=== PATIENT | female | born 1985 | race Caucasian/White ===

== ENCOUNTER → 2018-10-05 | Outpatient (CLI) | payer BC | LOC: FIMAGING 09:05 | PROVIDERS: ATTEND Obstetrics & Gynecology | DX: Z36.0 Encounter for antenatal screening for chromosomal anomalies (principal); O30.041 Twin pregnancy, dichorionic/diamniotic, first trimester; Z3A.12 12 weeks gestation of pregnancy ==

== ENCOUNTER → 2018-12-04 | Outpatient (CLI) | payer BC | LOC: FIMAGING 10:12 | PROVIDERS: ATTEND Obstetrics & Gynecology | DX: O09.92 Supervision of high risk pregnancy, unspecified, second trimester (principal); O30.042 Twin pregnancy, dichorionic/diamniotic, second trimester; Z3A.20 20 weeks gestation of pregnancy ==

== ENCOUNTER → 2019-01-04 | Outpatient (CLI) | payer BC | LOC: FIMAGING 12:31 | PROVIDERS: ATTEND Obstetrics & Gynecology | DX: O30.042 Twin pregnancy, dichorionic/diamniotic, second trimester (principal); Z3A.25 25 weeks gestation of pregnancy ==

== ENCOUNTER → 2019-03-08 | Outpatient (CLI) | payer BC | LOC: FIMAGING 12:41 | PROVIDERS: ATTEND Obstetrics & Gynecology | DX: O30.043 Twin pregnancy, dichorionic/diamniotic, third trimester (principal); Z3A.34 34 weeks gestation of pregnancy ==

== ENCOUNTER 2019-04-06 06:00 | Inpatient (IN) | payer BC ==
[2019-04-06] MEDS ORDERED: LIDOCAINE 1% 300 MG/30 ML SDV SC PRN (08:50)
[2019-04-06] MEDS ORDERED: OXYTOCIN/RINGERS LACTATE 1,000 ML IV PRN (08:50)
[2019-04-06] MEDS ORDERED: IBUPROFEN 600 MG TAB PO PRN (08:50)
[2019-04-06] MEDS ORDERED: EPSOM SALT 454 GM TP PRN (08:50)
[2019-04-06] MEDS ORDERED: OLIVE OIL 118 ML BTL MISC PRN (08:50)
[2019-04-06] MEDS ORDERED: PENICILLIN G POTASSIUM 5,000,000 UNIT in D5W 150 ML IV ONE (08:50)
[2019-04-06] MEDS ORDERED: LR 1,000 ML IV PRN (08:50)
[2019-04-06] MEDS ORDERED: MISOPROSTOL 200 MCG TAB PR PRN (08:50)
[2019-04-06] MEDS ORDERED: LR 500 ML IV PRN (08:55)
--- NOTE | 2019-04-06 08:55 | PDGENHP ---
History and Physical - Chief Complaint IOL, Licha twin - History of Present Illness Fe is a 33 yo today at 38w2d with Licha twins - conceived on Clomid. Overall a very uncomplicated twin . Has been on baby ASA which she stopped last week. Growth has been concordant (almost identical) and no other issues so she has not needed testing and was recommended to deliver by 38 wks. She was seen in the office yesterday for nelson bulb and was 1cm/80% effaced, babies were VTX/VTX. She'd very much prefer a vaginal delivery if possible. Most recent growth US at M 34 wks showed VTX/VTX with exactly the same EFW. otherwise complicated by Hypothyroid on Levo, Rh neg. OB History: 2014 - SAB, conceived on Clomid. 2016 - "[place]", [id number], 40 wks, epidural, IUI w Clomid - no complications, 16hr labor Labs: Laboratory Tests 12/08/15 11/15/17 09/22/18 11:43 13:17 12:15 Gestat Glucose Screen Alpha Fetoprotein TSH RPR NONREACTIVE Syphilis IgG/IgM Ab C.trachomatis RNA (TMA) Hep Bs Antigen HIV 1&2 Antibody HPV High Risk NEGATIVE N.gonorrhoeae RNA (TMA) Rubella IgG Antibody Group B Strep DNA VZV IgG Antibody Positive VZV IgG Ab Index 4.2 VZV IgG,IgM Antibody Negative Patient ABO/Rh Antibody Screen Antibody Identification 09/22/18 09/22/18 09/22/18 12:15 12:15 16:27 Gestat Glucose Screen Alpha Fetoprotein TSH RPR Syphilis IgG/IgM Ab NONREACTIVE C.trachomatis RNA (TMA) NEGATIVE Hep Bs Antigen NEGATIVE HIV 1&2 Antibody NEGATIVE HPV High Risk N.gonorrhoeae RNA (TMA) NEGATIVE Rubella IgG Antibody 118.00 Group B Strep DNA VZV IgG Antibody VZV IgG Ab Index VZV IgG,IgM Antibody Patient ABO/Rh Antibody Screen Antibody Identification 11/16/18 01/11/19 03/08/19 10:47 10:00 13:05 Gestat Glucose Screen 80 Alpha Fetoprotein 88.2 TSH 1.830 RPR Syphilis IgG/IgM Ab C.trachomatis RNA (TMA) Hep Bs Antigen HIV 1&2 Antibody HPV High Risk N.gonorrhoeae RNA (TMA) Rubella IgG Antibody Group B Strep DNA VZV IgG Antibody VZV IgG Ab Index VZV IgG,IgM Antibody Patient ABO/Rh Antibody Screen Antibody Identification 03/23/19 04/06/19 15:59 08:45 Gestat Glucose Screen Alpha Fetoprotein TSH RPR Syphilis IgG/IgM Ab C.trachomatis RNA (TMA) Hep Bs Antigen HIV 1&2 Antibody HPV High Risk N.gonorrhoeae RNA (TMA) Rubella IgG Antibody Group B Strep DNA POSITIVE H VZV IgG Antibody VZV IgG Ab Index VZV IgG,IgM Antibody Patient ABO/Rh O NEGATIVE Antibody Screen POSITIVE Antibody Identification SIG ANTIBODIES RULED OUT Last MFM US/Growth (34wks): Twin A position: vertex on right Placental location: anterior Single vertical pocket: 3.7 cm Twin B position: vertex on left Placental location: posterior Single vertical pocket: 6.2 cm Cervical length: not seen Adnexa: not visualized Twin A Estimated weight: 2559 gm weight percentile: 69 % Twin B Estimated weight: 2559 gm weight percentile: 69 % History Information - Allergies/Home Medication List Allergies/Adverse Reactions: No Known Allergies Allergy (Unverified 03/28/15 19:10) Home Medications: Vit27&Calcium/Iron/FA [] 1 tab PO DAILY 03/28/15 [Last Taken Unknown] Docosahexanoic Acid [Dha] 1 tab PO DAILY 06/27/16 [Last Taken Unknown] IRON,CARBONYL [IRON] 45 mg PO BID 06/27/16 [Last Taken Unknown] I have personally reviewed and updated: family history, medical history, social history, surgical history Past Medical History: Hypothyroid, infertility - Surgical History Additional surgical history: None - Social History Smoking Status: Never smoked Review of Systems Review of Systems: ROS: 10pt was reviewed & negative except for what was stated in HPI & below Physical Exam Physical Exam: Constitutional: no apparent distress, appears nourished, not in pain Eyes: PERRL, anicteric sclera Ears, Nose, Mouth, Throat: moist mucous membranes, hearing normal Gastrointestinal: soft, non-tender abdomen (Gravid, Fetuses VTX/VTX on initial US exam) Skin: warm Musculoskeletal: full muscle strength Neurologic: AAOx3, sensation intact bilaterally Lab Data & Imaging Review 04/06/19 08:45 Laboratory Tests 12/08/15 11/15/17 09/22/18 11:43 13:17 12:15 RPR NONREACTIVE Syphilis IgG/IgM Ab C.trachomatis RNA (TMA) Hep Bs Antigen HIV 1&2 Antibody HPV High Risk NEGATIVE N.gonorrhoeae RNA (TMA) Rubella IgG Antibody Group B Strep DNA VZV IgG Antibody Positive VZV IgG,IgM Antibody Negative 09/22/18 09/22/18 09/22/18 12:15 12:15 16:27 RPR Syphilis IgG/IgM Ab NONREACTIVE C.trachomatis RNA (TMA) NEGATIVE Hep Bs Antigen NEGATIVE HIV 1&2 Antibody NEGATIVE HPV High Risk N.gonorrhoeae RNA (TMA) NEGATIVE Rubella IgG Antibody 118.00 Group B Strep DNA VZV IgG Antibody VZV IgG,IgM Antibody 03/23/19 15:59 RPR Syphilis IgG/IgM Ab C.trachomatis RNA (TMA) Hep Bs Antigen HIV 1&2 Antibody HPV High Risk N.gonorrhoeae RNA (TMA) Rubella IgG Antibody Group B Strep DNA POSITIVE H VZV IgG Antibody VZV IgG,IgM Antibody Imaging Review: Initial bedside US performed by me: VTX/VTX FHR 140s x 2, moderate variability, accels present, no decels [place], None Assessment & Plan Assessment: 33 yo at 38w2d here for IOL with Licha twins. - IOL: Nelson bulb in place, was 1/80 when it was placed yesterday with 40/20cc. - Start PCN and Pitocin now, will AROM A and place FSE once in regular pattern. - GBS pos - PCN. - Hypothyroid - Cont levo 50mcg - Plan for delivery: Epidural recommended, Deliver in OR, VTX/VTX, but told her I'm comfortable with breech extraction if needed. ASH
[2019-04-06] MEDS ORDERED: OXYTOCIN/RINGERS LACTATE 500 ML IV SCH (09:00)
[2019-04-06 09:12] LABS: PLATELET COUNT 154 10^3/uL (150-400)
[2019-04-06] MEDS ORDERED: AMMONIA AROMATIC 1 EACH AMP IH ONE (11:27)
[2019-04-06] MEDS ORDERED: TERBUTALINE SULFATE 1 MG/ML VIAL ONE (11:28)
[2019-04-06] MEDS ORDERED: MISOPROSTOL 200 MCG TAB ONE (11:29)
[2019-04-06] MEDS ORDERED: OXYTOCIN 10 UNIT/ML VIAL ONE (11:29)
[2019-04-06] MEDS ORDERED: OXYTOCIN/RINGERS LACTATE 20 UNIT/1,000 ML BAG IV ONE (11:29)
[2019-04-06] MEDS: PENICILLIN G POTASSIUM 2,500,000 UNIT in D5W 150 ML IV SCH ×3 (14:06→22:54)
--- NOTE | 2019-04-06 15:12 | OBPROG ---
Labor Progress Note Assessment/Plan: Assessment: Plan: Subjective/Intrapartum Course: 04/06/19 15:10 patient still comfortable. AROM. large amount of clear fluid. fecg placed. patient on pitocin. patient plans epidural. status reassuring. Objective: 04/06/19 08:45 Patient ABO/Rh O NEGATIVE 04/06/19 08:45 - SVE Dilation (cm): 3 Effacement (%): 80 Station: -2 Membranes: AROM Amniotic Fluid Color: Clear - FHR Assessment [place] FHR Pattern Variability: Moderate FHR Category: 1 Twin A FHR Pattern Variability: Moderate FHR Category: 1 - Procedures Non-surgical Procedures: Amniotomy, FSE Oxytocin Orders Assessment - Pre-Induction/Augmentation Assessment Gestational Age: 38 week(s) and 2 day(s) ICD10 Worksheet Patient Problems: Problems Problem Status Onset Delayed delivery after SROM (spontaneous rupture of membranes)antepart Acute
[2019-04-06] MEDS ORDERED: fentaNYL 2MCG/ML/BUP 0.1% RTU 100 ML BAG EP ONE (17:38)
[2019-04-06] MEDS ORDERED: PHENYLEPHRINE HCL 100 MCG/ML SYR ONE (17:38)
[2019-04-06] MEDS ORDERED: ONDANSETRON 4 MG/2 ML VIAL IVP PRN (18:10)
--- NOTE | 2019-04-06 18:14 | PREANESOB ---
Obstetric Pre-Anesthesia Info - General Info Proposed Procedure: Labor Epidural : 3 Para: 1 YENNY: 04/18/19 Gestational Age: 38 week(s) and 2 day(s) - Labor Status Cervical Dilation per last OB SVE: 3 Station per last OB SVE: -2 Amniotic Fluid Color: Clear Indications for Labor Analgesia: Pain Control Labor Epidural: Proposed Anesthesia Allergies/Adverse Reactions: Allergy/AdvReac Type Severity Reaction Status Date / Time No Known Allergies Allergy Unverified 03/28/15 19:10 Home Medications: Medication Instructions Recorded Vit27&Calcium/Iron/FA 1 tab PO DAILY 03/28/15 [] Docosahexanoic Acid [Dha] 1 tab PO DAILY 06/27/16 IRON,CARBONYL [IRON] 45 mg PO BID 06/27/16 Ibuprofen [Motrin (*)] 600 mg PO Q6 PRN #0 tab 06/29/16 Iron Polysacch/Iron Heme Polyp 28 mg PO DAILY #0 tab 06/29/16 [Bifera] Visit Medications: Generic Name Dose Route Start Last Admin Trade Name Pilra PRN Reason Stop Dose Admin Lactated Ringer's 1,000 mls @ 0 mls/hr 04/06/19 08:50 Lr IV 04/07/19 08:49 PRN PRN SEE PROTOCOL CONDITIONS Protocol Per Protocol Penicillin G Potassium 2,500, 155 mls @ 155 mls/hr 04/06/19 12:54 04/06/19 14 :06 000 unit/ Dextrose IV 05/06/19 12:53 155 mls Q4H LUIS MANUEL Administration Protocol Lactated Ringer's 500 mls @ 500 mls/hr 04/06/19 08:55 Lr IV 04/07/19 08:56 PRN PRN Maternal Hypotension Oxytocin/Lactated Ringer's 500 mls @ 0 mls/hr 04/06/19 09:00 04/06/19 10:05 Pitocin 30 Units/Lr (Premix) IV 10/03/19 08:59 500 mls CONT LUIS MANUEL Administration Protocol Per Protocol Ibuprofen 600 mg 04/06/19 08:50 Motrin PO ONCE PRN post , pain Lidocaine HCl 300 mg 04/06/19 08:50 Lidocaine Hcl 1% SC 10/03/19 08:49 ONCE PRN episiotomy Magnesium Sulfate 454 gm 04/06/19 08:50 Epsom Salt TP 10/03/19 08:49 Q1H PRN perineal discomfort Misoprostol 800 - 1,000 mcg 04/06/19 08:50 Cytotec [place] ONCE PRN Vaginal Atony/Bleeding [place] Oil 118 ml 04/06/19 08:50 Sweet Oil MISC 10/03/19 08:49 ONCE PRN perineal massage Discontinued Medications Generic Name Dose Route Start Last Admin Trade Name Freq PRN Reason Stop Dose Admin Ammonia (Aromatic Spirit) Confirm 04/06/19 11:27 Ammonia Aromatic Administered 04/06/19 11:28 Dose 1 each IH .STK-MED ONE Fentanyl/Bupivacaine HCl Confirm 04/06/19 17:38 Fentanyl/Bupivacaine/Ns 2 Mcg/Ml 0.1% (Premix Administered 04/06/19 17:39 Dose 100 ml EP .STK-MED ONE Oxytocin/Lactated Ringer's 1,000 mls @ 125 mls/hr 04/06/19 08:50 04/06/19 10: 02 Pitocin 20 Units/Lr (Premix) IV 1,000 mls PRN PRN Administration Post bleeding Penicillin G Potassium 5,000, 160 mls @ 160 mls/hr 04/06/19 08:50 04/06/19 10 :01 000 unit/ Dextrose IV 04/06/19 09:49 160 mls ONCE ONE Administration Protocol Misoprostol Confirm 04/06/19 11:29 Cytotec Administered 04/06/19 11:30 Dose 1,000 mcg .ROUTE .STK-MED ONE Oxytocin Confirm 04/06/19 11:29 Pitocin Administered 04/06/19 11:30 Dose 20 unit .ROUTE .STK-MED ONE Oxytocin/Lactated Ringer's Confirm 04/06/19 11:29 Pitocin 20 Units/Lr (Premix) Administered 04/06/19 11:30 Dose 20 unit IV .STK-MED ONE Phenylephrine HCl Confirm 04/06/19 17:38 Neosynephrine Administered 04/06/19 17:39 Dose 1,000 mcg .ROUTE .STK-MED ONE Terbutaline Sulfate Confirm 04/06/19 11:28 Brethine Administered 04/06/19 11:29 Dose 1 mg .ROUTE .STK-MED ONE - Vital Signs Height/Weight (Nursing): Height 175.26 cm Weight 79.379 kg - Focused Exam Neck exam: FROM Mallampati Score: Class 2 Mouth exam: normal dental/mouth exam Pulmonary: clear to auscultation Cardiovascular: regular rate and rhythym Labs: 04/06/19 08:45 Patient ABO/Rh O NEGATIVE 04/06/19 08:45 - Plan Consent Signed and on Chart: Yes Patient/Guardian Understands and Agrees to Plan: Yes
[2019-04-06] MEDS ORDERED: LR 500 ML IV SCH (18:30)
[2019-04-06] MEDS ORDERED: fentaNYL 2MCG/ML/BUP 0.1% RTU 100 ML EP SCH (18:30)
[2019-04-06] MEDS ORDERED: DOCUSATE SODIUM 100 MG CAP PO PRN (22:59)
[2019-04-06] MEDS ORDERED: HYDROCORTISONE 0.5% CREAM TP PRN (22:59)
[2019-04-06] MEDS ORDERED: oxyCODONE IR 5 MG TAB PO PRN (22:59)
[2019-04-06] MEDS ORDERED: SIMETHICONE 80 MG TAB CHEW PO PRN (22:59)
--- NOTE | 2019-04-06 22:59 | OBPROG ---
Labor Progress Note Assessment/Plan: Assessment: Plan: Subjective/Intrapartum Course: 04/06/19 15:10 patient still comfortable. AROM. large amount of clear fluid. fecg placed. patient on pitocin. patient plans epidural. status reassuring. Objective: 04/06/19 08:45 Patient ABO/Rh O NEGATIVE 04/06/19 08:45 - SVE Membranes: AROM Amniotic Fluid Color: Clear Dilation Complete Date: 04/06/19 Dilation Complete Time: 20:28 - Procedures Non-surgical Procedures: Amniotomy, FSE Oxytocin Orders Assessment - Pre-Induction/Augmentation Assessment Gestational Age: 38 week(s) and 2 day(s) ICD10 Worksheet Patient Problems: Problems Problem Status Onset Delayed delivery after SROM (spontaneous rupture of membranes)antepart Acute
--- NOTE | 2019-04-06 23:11 | OBDEL ---
Info Type: Vaginal Presentation at Delivery: Vertex L&D Analgesia/Anesthesia Type: Epidural GBS+: Yes Intrapartum Medications: Generic Name Dose Route Start Last Admin Trade Name Freq PRN Reason Stop Dose Admin Oxytocin/Lactated Ringer's 500 mls @ 0 mls/hr 04/06/19 09:00 04/06/19 10:05 Pitocin 30 Units/Lr (Premix) IV 10/03/19 08:59 500 mls CONT LUIS MANUEL Administration Protocol Per Protocol Discontinued Medications Generic Name Dose Route Start Last Admin Trade Name Freq PRN Reason Stop Dose Admin Oxytocin/Lactated Ringer's 1,000 mls @ 125 mls/hr 04/06/19 08:50 04/06/19 10: 02 Pitocin 20 Units/Lr (Premix) IV 1,000 mls PRN PRN Administration Post bleeding Penicillin G Potassium 5,000, 160 mls @ 160 mls/hr 04/06/19 08:50 04/06/19 10 :01 000 unit/ Dextrose IV 04/06/19 09:49 160 mls ONCE ONE Administration Protocol Penicillin G Potassium 2,500, 155 mls @ 155 mls/hr 04/06/19 12:54 04/06/19 22 :54 000 unit/ Dextrose IV 05/06/19 12:53 Not Given Q4H [facility] Protocol Indications for Delivery: Multiple Gestation Di-Di Twins Vaginal Delivery - Delivery Provider Delivery Physician/CNM: Johnny Yang - Labor and Delivery Onset of Contractions Date: 04/06/19 Onset of Contractions Time: 15:30 Onset of Contractions Type: Augmented Rupture of Membranes Date: 04/06/19 Rupture of Membranes Time: 15:05 Rupture of Membranes Type: Artificial Amniotic Fluid Color: Clear Dilation Complete Date: 04/06/19 Dilation Complete Time: 20:28 Placenta Delivery Date: 04/06/19 Placenta Delivery Time: 21:56 Total Hours of Labor: 6 Non-surgical Procedures: Amniotomy, FSE Laceration: 1st Degree, Other (Specify) (right labia majora (lateral/external)) Repair: 3-0, 4-0, Vicryl Vaginal Sponge Count Correct: Yes Vaginal Needle Count Correct: Yes Vaginal Sweep Performed: Yes EBL: 500 Delivery Events: Post Hemorrhage (500cc) Delivery Comment: Patient presented in the AM with nelson bulb still in place. Pit and PCN started. Hour later AROM with clear fluid for baby A and FSE placed to help differentiate FHR tracings. Made steady progress to complete and we moved to the OR to push. FHR were Category I throughout Stage I for both babies. Pt did receive epidural for pain control around 4cm. Once set up in the back, pt pushed for 3 contractions and delivered Baby A in direct OA position without issue. Baby up to mom's chest. Delayed cord clamping for 90 seconds then cord clamped and cut. US used extrernally and Baby B found to be vertex and almost engaged in pelvis but had left arm up above his head in compound presentation. We continued Pitocin at this point and had very reassuring tracing for Baby B, hoping that she would withdraw her hand back down. We checked again with US after 5 minute and hand/arm indeed retracted. AROM with clear fluid for B. Mom pushed for another 3 contractions delivered Baby B girl in direct OA position without issue. Head and face fully delivered before left hand and arm, but still partially complex presentation. Delayed cord clamping again for 90 seconds with baby up on moms chest, then cord clamped and cut. Placentas delivered together spontaneously with gentle expression. Both completely intact. Pitocin started, uterus firm and contracted immediately after delivery of placentas. 1st degree lac repaired with 3-0 vicryl standard fashion and right external labia majora lac repaired with interrupted sutures 4-0 vicryl. Mom and babies doing well in room. Cord Gases: Cord Gases Cord Blood PCO2 64 mmHg (37-60) H 04/06/19 21:52 Cord Base Excess -6.4 mEq/L (-13.6--3.2) 04/06/19 21:52 Cord ABG pH 7.19 (7.10-7.37) 04/06/19 21:52 Cord VBG pH 7.24 (7.20-7.42) 04/06/19 21:52 - Medications Labor Augmentation/Induction Methods Used: Pitocin, Nelson Bulb Labor Augmentation/Induction Indication: Medical, Multiple Gestation Operative Report - Delivery Cord Gases: Cord Gases Cord Blood PCO2 64 mmHg (37-60) H 04/06/19 21:52 Cord Base Excess -6.4 mEq/L (-13.6--3.2) 04/06/19 21:52 Cord ABG pH 7.19 (7.10-7.37) 04/06/19 21:52 Cord VBG pH 7.24 (7.20-7.42) 04/06/19 21:52 Data YENNY: 04/18/19 Gestational Age: 38 week(s) and 2 day(s) Twin A Delivery Date: 04/06/19 Delivery Time: 21:31 Sex of Infant: Male Score (1 Min): 8 Score (5 Min): 9 Twin B Delivery Date: 04/06/19 Delivery Time: 21:52 Sex of : Female Score (1 Min): 8 Score (5 Min): 8 Shoulder Dystocia Dystocia Comment: No dystocia ICD10 Worksheet Patient Problems: Problems Problem Status Onset Dichorionic diamniotic twin gestation Acute Hypothyroid Acute Twin delivered vaginally Acute Delayed delivery after SROM (spontaneous rupture of membranes)antepart Acute - ICD10 Problem Qualifiers (1) Dichorionic diamniotic twin gestation Qualifiers: Trimester: third trimester Qualified Code(s): O30.043 - Twin , dichorionic/diamniotic, third trimester (2) Twin delivered vaginally (3) Hypothyroid Qualifiers: Hypothyroidism type: acquired Qualified Code(s): E03.9 - Hypothyroidism, unspecified
[2019-04-06] MEDS: ACETAMINOPHEN 325 MG TAB PO PRN (23:14)
[2019-04-07] MEDS: IBUPROFEN 600 MG TAB PO PRN ×4 (04:49→22:14)
[2019-04-07] MEDS: ACETAMINOPHEN 325 MG TAB PO PRN ×4 (04:50→22:13)
[2019-04-07] MEDS: LEVOTHYROXINE 50 MCG TAB PO SCH (06:07)
--- NOTE | 2019-04-07 10:13 | OBPP ---
Progress Note Assessment/Plan: Assessment: ppd# 1 s/p of twins anemia - will start iron breast feeding rh - babies rh + will get rhogam rubella immune uncomplicated post course Plan: 04/07/19 10:11 Subjective/ Course: 04/07/19 10:12 patient is doing great . had two episodes of near syncope post but doing well now. discussed anemia and iron. pain controlled. normal lochia. denies headache and changes in vision . breast feeding is going well . Objective: 04/07/19 06:31 Patient ABO/Rh O NEGATIVE 04/06/19 22:45 Temp Pulse Resp BP Pulse Ox 36.4 C 67 14 111/72 97 04/07/19 09:50 04/07/19 09:50 04/07/19 09:50 04/07/19 09:50 04/07/19 09:50 Physical Exam - Physical Exam Neck: non-tender, full range of motion Respiratory: chest non-tender, lungs clear, normal breath sounds Cardiac/Chest: normal peripheral pulses, regular rate, rhythm Abdomen: normal bowel sounds, non-tender, other (fundus firm and non tender) Extremities: normal range of motion, non-tender, normal inspection, normal capillary refill Skin: normal color, warm/dry Neuro/Psych: no motor/sensory deficits, alert, normal mood/affect, oriented x 3
[2019-04-07] MEDS: FERRO-SEQUELS 65 MG TAB.ER PO SCH ×2 (10:49→22:13)
--- NOTE | 2019-04-07 11:01 | POSTANESTH ---
Post Anesthetic Evaluation Cardiovascular Status: Normal, Stable Respiratory Status: Normal, Stable Level of Consciousness/Mental Status: Can Participate in Eval Pain Control: Adequate, Prn Tx Ordered Nausea/Vomiting Control: Adequate, Prn Tx Ordered Complications Possibly Related to Anesthesia: None Noted Notes: Pt doing well s/p THAO. Return of full sensory and motor function in lower extremities, no headache, no backache.
[2019-04-08] MEDS: LEVOTHYROXINE 50 MCG TAB PO SCH (07:49)
[2019-04-08 07:58] VITALS: BP 113/76
[2019-04-08] MEDS: ACETAMINOPHEN 325 MG TAB PO PRN (08:29)
[2019-04-08] MEDS: IBUPROFEN 600 MG TAB PO PRN (08:29)
[2019-04-08] MEDS: FERRO-SEQUELS 65 MG TAB.ER PO SCH (08:29)
--- NOTE | 2019-04-08 10:56 | OBGCSDC ---
General Delivery Information - General Info : 3 Para: 2 Abortions: 1 Type: Vaginal L&D Analgesia/Anesthesia Type: Epidural Admission Date: 04/06/19 Labs: Patient ABO/Rh O NEGATIVE 04/06/19 22:45 Hct 29.8 % (38.0-47.0) L 04/07/19 06:31 - Hospital Course : 04/07/19 10:12 patient is doing great . had two episodes of near syncope post but doing well now. discussed anemia and iron. pain controlled. normal lochia. denies headache and changes in vision . breast feeding is going well . Vaginal - Delivery Provider Delivery Physician/CNM: Johnny Yang - Diagnosis Labor: Augmented Rupture of Membranes Type: Artificial Amniotic Fluid Color: Clear Laceration: 1st Degree, Other (Specify) (right labia majora (lateral/external)) Repair: 3-0, 4-0, Vicryl Delivery Events: Post Hemorrhage (500cc) - Procedures Non-surgical Procedures: Amniotomy, FSE - Delivery Non-surgical Procedures: Amniotomy, FSE EBL: 500 [place] Data YENNY: 04/18/19 Gestational Age: 38 week(s) and 4 day(s) Twin A Delivery Date: 04/06/19 Delivery Time: 21:31 Sex of Infant: Male [place] Weight (gm): 2970 kg Score (1 Min): 8 Score (5 Min): 9 Twin B Delivery Date: 04/06/19 Delivery Time: 21:52 Sex of : Female [place] Weight (gm): 3210 kg Score (1 Min): 8 Score (5 Min): 8
--- NOTE | 2019-04-08 10:56 | OBPP ---
Progress Note Assessment/Plan: Assessment: Plan: Subjective/ Course: 04/07/19 10:12 patient is doing great . had two episodes of near syncope post but doing well now. discussed anemia and iron. pain controlled. normal lochia. denies headache and changes in vision . breast feeding is going well . Objective: 04/07/19 06:31 Patient ABO/Rh O NEGATIVE 04/06/19 22:45 Temp Pulse Resp BP Pulse Ox 36.9 C 68 14 113/76 97 04/08/19 07:50 04/08/19 07:50 04/08/19 07:50 04/08/19 07:50 04/08/19 07:50
== END 2019-04-08 11:00 | disposition home or self-care (01) | DRG 807 ==
LOC: FLD 06:19 → FOB 04-07 05:24
PROVIDERS: ADMIT Obstetrics & Gynecology; ATTEND Obstetrics & Gynecology
PROC: 10E0XZZ Delivery of Products of Conception, External Approach (ICD-10-PCS; principal; 2019-04-06)
PROC: 10907ZC Drainage of Amniotic Fluid, Therapeutic from Products of Conception, Via Natural or Artificial Opening (ICD-10-PCS; principal; 2019-04-06)
PROC: 3E033VJ Introduction of Other Hormone into Peripheral Vein, Percutaneous Approach (ICD-10-PCS; principal; 2019-04-06)
PROC: 0HQ9XZZ Repair Perineum Skin, External Approach (ICD-10-PCS; principal; 2019-04-06)
DX: O99.284 Endocrine, nutritional and metabolic diseases complicating childbirth (principal); Z37.2 Twins, both liveborn; Z3A.38 38 weeks gestation of pregnancy; E03.9 Hypothyroidism, unspecified; O70.0 First degree perineal laceration during delivery; O72.1 Other immediate postpartum hemorrhage
CPT/HCPCS: J2370; J2540; J2590; J3105